=== PATIENT | male | born 1975 | race American Indian/Alaskan Native ===

== ENCOUNTER 2020-12-25 05:50 | Inpatient (IN) | payer SELFPAY ==
[2020-12-25] MEDS ORDERED: ASPIRIN 325 MG TAB PO ONE (05:55)
[2020-12-25] MEDS ORDERED: TRANEXAMIC ACID 500 MG in SODIUM CHLORIDE 0.9% 100 ML IV STA (06:18)
[2020-12-25 06:41] LABS: Basophils # (Auto) 0.1 K/mm3 (0.0-0.1); Eosinophils # (Auto) 0.1 K/mm3 (0.0-0.4); Eosinophils % (Auto) 1.2 % (0.0-4.3); Hematocrit 48.6 % (35.5-45.6); Hemoglobin 16.3 gm/dl (11.8-15.2); Lymphocytes # (Auto) 3.5 K/mm3 (1.2-5.4); Mean Corpuscular HGB Conc 34 % (32-34); Mean Corpuscular Volume 89 fl (84-94); Monocytes # (Auto) 0.6 K/mm3 (0.0-0.8); Monocytes % (Auto) 7.9 % (0.0-7.3); Platelet Count 187 K/mm3 (140-440); Red Blood Count 5.49 M/mm3 (3.65-5.03)
--- NOTE | 2020-12-25 06:42 | Emergency Department Report ---
ED Chest Pain HPI - General Chief Complaint: Chest Pain Stated Complaint: CHEST PAIN/NOSE BLEED Time Seen by Provider: 12/25/20 06:01 Source: patient Mode of arrival: Ambulatory Limitations: No Limitations - History of Present Illness Initial Comments: Chief complaint: Nosebleed, chest pain HPI: This is a 45-year-old gentleman with history of severe hypertension on five antihypertensive medications, [place] who presents with nosebleed and chest pain. Patient awakened 1 hour prior to arrival with bleeding from the right nostril. He also had concomitant right sharp chest pain. Pain does not change with movement or cough. Patient recently traveled from [place]. He is followed by [facility] in [place]. He denies fever cough. He denies leg pain. He has had bilateral leg swelling. He flew to [place] by [employer]. He takes five medications for hypertension including hydralazine and atenolol. He cannot recall the other medications. He did not take any medication on yesterday. His last dose of medication was Saturday. He has several family members with cardiac disease. This is his third episode of epistaxis. He denies tobacco alcohol or recreational drug use. MD Complaint: chest pain -: Sudden, hour(s) (1 hour prior to arrival in the middle of sleep) Onset: during rest Pain Location: right chest Severity: moderate Quality: sharp Consistency: constant Improves With: nothing Worsens With: nothing Treatments Prior to Arrival: none - Related Data Allergies Allergy/AdvReac Type Severity Reaction Status Date / Time No Known Allergies Allergy Verified 12/25/20 06:04 Heart Score - HEART Score History: Slightly suspicious EKG: Non-specific Age: < 45 Risk factors: > 3 risk factors or hx of atherosclerotic disease Troponin: < normal limit HEART Score: 3 - EKG Read Time Time EKG Completed: 06:04 EKG Read Time: 06:04 ED Review of Systems ROS: Stated complaint: CHEST PAIN/NOSE BLEED Other details as noted in HPI Comment: All other systems reviewed and negative Constitutional: denies: fever, malaise ENT: epistaxis Respiratory: denies: cough, shortness of breath Cardiovascular: chest pain Gastrointestinal: denies: abdominal pain, nausea, vomiting Genitourinary: denies: urgency, dysuria Skin: denies: rash, lesions Neurological: denies: headache ED Past Medical Hx - Past Medical History Previous Medical History?: Yes Hx Hypertension: Yes Hx Heart Attack/AMI: Yes - Surgical History Past Surgical History?: No - Family History Family history: CAD/TN - Social History Smoking Status: Never Smoker Substance Use Type: None ED Physical Exam - General Limitations: No Limitations General appearance: alert, anxious, other (Spitting up blood, laying back at 45 degrees) - Head Head exam: Present: atraumatic, normocephalic - Eye Eye exam: Present: normal appearance - ENT ENT exam: Present: mucous membranes moist, other (Gauze in the right nose clean dry) - Neck Neck exam: Present: normal inspection, full ROM - Respiratory Respiratory exam: Present: normal lung sounds bilaterally. Absent: respiratory distress, wheezes, rales, rhonchi - Cardiovascular Cardiovascular Exam: Present: regular rate, normal rhythm, normal heart sounds. Absent: systolic murmur, diastolic murmur, rubs, gallop - GI/Abdominal GI/Abdominal exam: Present: soft, normal bowel sounds. Absent: distended, t enderness, guarding, rebound - Rectal Rectal exam: Present: deferred - Extremities Exam Extremities exam: Present: pedal edema, other (Hyperpigmented patches lower extremities) - Neurological Exam Neurological exam: Present: alert, oriented X3 - Psychiatric Psychiatric exam: Present: normal affect, normal mood - Skin Skin exam: Present: warm, dry, intact, normal color. Absent: rash ED Course Vital Signs 12/25/20 12/25/20 12/25/20 05:56 06:30 08:25 Temperature 98.6 F Pulse Rate 102 H 93 H 81 Respiratory 19 Rate Blood Pressure 236/149 214/124 Blood Pressure 270/157 [Right] O2 Sat by Pulse 97 Oximetry - Procedure Description Procedures done: Epistaxis management. I personally sprayed approximately 20 sprays of Afrin over the course of 10 minutes in order to control epistaxis. I inserted a 4.5 cm anterior Rhino Rocket ED Medical Decision Making - Lab Data Result diagrams: 12/25/20 06:27 12/25/20 06:27 Laboratory Results - last 24 hr 12/25/20 12/25/20 12/25/20 06:27 06:27 06:27 WBC 7.8 RBC 5.49 H Hgb 16.3 H Hct 48.6 H MCV 89 MCH 30 MCHC 34 RDW 15.0 Plt Count 187 Lymph % (Auto) 45.0 H Burke % (Auto) 7.9 H Eos % (Auto) 1.2 Baso % (Auto) 1.0 Lymph # (Auto) 3.5 Burke # (Auto) 0.6 Eos # (Auto) 0.1 Baso # (Auto) 0.1 Seg Neutrophils % 44.9 Seg Neutrophils # 3.5 PT 12.7 INR 0.90 APTT 34.4 D-Dimer 480.46 H Sodium 140 Potassium 3.4 L Chloride 99.2 Carbon Dioxide 28 Anion Gap 16 BUN 26 H Creatinine 2.1 H Estimated GFR 34 BUN/Creatinine Ratio 12 Glucose 111 H Calcium 8.9 Total Bilirubin 0.70 AST 25 ALT 40 Alkaline Phosphatase 65 Troponin T 0.176 H* Total Protein 8.2 Albumin 4.4 Albumin/Globulin Ratio 1.2 - EKG Data EKG shows normal: sinus rhythm Rate: tachycardia - EKG Data Interpretation: nonspecific ST-T wave estiven, LVH 12/25/20 06:41 EKG obtained 604 EKG interpreted by tn Sinus tachycardia rate 100 bpm left axis deviation prolonged QTC positive LVH prolonged RI large P waves repolarization abnormality due to LVH - Radiology Data Radiology results: report reviewed [facility] [address] [place] [address] Cat Scan Report Signed Patient: TOVA PANDEY MR#: [id number] [birth year] : 1975 Acct:[id number] Age/Sex: 45 / M ADM Date: 12/25/20 Loc: ED Attending Dr: Ordering Physician: Petra Acevedo MD Date of Service: 12/25/20 Procedure(s): CT angio chest Accession Number(s): [id number] cc: Petra Acevedo MD CTA CHEST WITH IV CONTRAST INDICATION: Shortness of breath and elevated d-dimer. TECHNIQUE: Axial CT images were obtained through the chest after injection of 60 cc Omnipaque 350 IV contrast. 3 plane MIP reconstructions were produced. All CT scans at this location are performed using CT dose reduction for ALARA by means of automated exposure control. COMPARISON: None available. FINDINGS: Pulmonary Arteries: No pulmonary emboli. Lungs: There is mild interstitial pulmonary edema. Trachea and Bronchi: No significant abnormality. Heart and Pericardium: No significant abnormality. Vasculature: No significant abnormality. Lymphatics: No lymphadenopathy. Additional Findings: None. Upper Abdomen: No acute findings. Skeletal Structures: No acute findings or aggressive bone lesions. IMPRESSION: 1. No CT evidence for pulmonary embolism. 2. Mild pulmonary edema. Signer Name: Rafa Villatoro MD Signed: 12/25/2020 8:12 AM Workstation Name: [id number] Transcribed By: LEONOR Dictated By: Rafa Villatoro MD Electronically Authenticated By: Rafa Villatoro MD Signed Date/Time: 12/25/20811 DD/ 0 TD/TT: [facility] [address] [place] [address] XRay Report Signed Patient: TOVA PANDEY MR#: [id number] [birth year] : 1975 Acct:[id number] Age/Sex: 45 / M ADM Date: 12/25/20 Loc: ED Attending Dr: Ordering Physician: Petra Acevedo MD Date of Service: 12/25/20 Procedure(s): XR chest 1V ap Accession Number(s): [id number] cc: Petra Acevedo MD Fluoro Time In Minutes: CHEST 1 VIEW 12/25/2020 6:39 AM INDICATION / CLINICAL INFORMATION: chest pain. COMPARISON: None available. FINDINGS: SUPPORT DEVICES: None. HEART / MEDIASTINUM: No significant abnormality. LUNGS / PLEURA: No significant pulmonary or pleural abnormality. No pneumothorax. ADDITIONAL FINDINGS: No significant additional findings. IMPRESSION: 1. No acute findings. Signer Name: Camron Segundo MD Signed: 12/25/2020 7:45 AM Workstation Name: [id number] Transcribed By: EMMY Dictated By: Camron Segundo MD Electronically Authenticated By: Camron Segundo MD Signed Date/Time: 12/25/20744 DD/ 4 TD/TT: - Medical Decision Making 1. Anterior epistaxis: Patient required several interventions to control bleeding including Afrin and anterior nasal packing. Keflex ordered for antibiotic staphylococcal prophylaxis. 2. Hypertensive emergency: Patient initial blood pressure 270/157. Patient admitted to not taking his blood pressure medication since Saturday 2 days ago. Endorgan damage includes demand ischemia with elevated troponin. Unclear if kidney injury is new for patient. Patient received multiple doses of IV labetalol. 3. Type II NSTEMI caused by hypertensive crisis myocardial supply demand mismatch: Patient has history of "several small heart attacks" without PCI. I suspect patient has nonobstructive coronary disease. Aspirin given after epistaxis controlled. 4. Acute on chronic kidney injury: Proteinuria evident, suspect developing nephropathy due to hypertension, overall hematuria acute endorgan damage due to hypertensive crisis not as likely 5. Acute heart failure: Pulmonary edema seen on CT angiogram of the chest which ruled out pulmonary embolism and aortic dissection. Suspect diastolic heart failure with severe uncontrolled hypertension. Patient's Blood cell Storage insurance has not been active since March 2020. I suspect medication noncompliance has been longer than 2 days without access to health care. Critical Care Time: Yes Critical care time in (mins) excluding proc time.: 40 Critical care attestation.: If time is entered above; I have spent that time in minutes in the direct care of this critically ill patient, excluding procedure time. 40 minutes of critical care time excluding procedures were used in the care of the patient. I came immediately to the bedside upon patient's arrival to treatment room. I was concerned for posterior epistaxis. I was concerned for hypertensive emergency such as aortic dissection. I was concerned for possible pulmonary embolism. I discussed treatment plan with the nursing team members. I reviewed electronic record. Patient required multiple interventions and reassessments. ED Disposition Clinical Impression: Hypertensive emergency, NSTEMI (non-ST elevated myocardial infarction), [id number] kidney injury, Anterior epistaxis, Acute diastolic heart failure Disposition: OP ADMIT IP TO THIS HOSP Is pt being admited?: Yes Does the pt Need Aspirin: No Condition: Stable Instructions: Hypertension (ED)
[2020-12-25] MEDS ORDERED: OXYMETAZOLINE 0.05% NASAL SPRAY NS ONE (06:46)
[2020-12-25 06:51] LABS: INR 0.9 (0.87-1.13)
[2020-12-25 06:52] LABS: Partial Thromboplastin Time 34.4 Sec. (24.2-36.6)
[2020-12-25 07:07] LABS: Albumin 4.4 g/dL (3.9-5); Calcium 8.9 mg/dL (8.4-10.2)
[2020-12-25] MEDS ORDERED: ASPIRIN 81 MG TAB CHEW PO ONE (07:44)
--- NOTE | 2020-12-25 07:50 | XRay Report ---
CHEST 1 VIEW 12/25/2020 6:39 AM INDICATION / CLINICAL INFORMATION: chest pain. COMPARISON: None available. FINDINGS: SUPPORT DEVICES: None. HEART / MEDIASTINUM: No significant abnormality. LUNGS / PLEURA: No significant pulmonary or pleural abnormality. No pneumothorax. ADDITIONAL FINDINGS: No significant additional findings. IMPRESSION: 1. No acute findings. Signer Name: Camron Segundo MD Signed: 12/25/2020 7:45 AM Workstation Name: [id number]
[2020-12-25 07:56] LABS: Chol/HDL Ratio 4.95 %
--- NOTE | 2020-12-25 08:16 | Cat Scan Report ---
CTA CHEST WITH IV CONTRAST INDICATION: Shortness of breath and elevated d-dimer. TECHNIQUE: Axial CT images were obtained through the chest after injection of 60 cc Omnipaque 350 IV contrast. 3 plane MIP reconstructions were produced. All CT scans at this location are performed using CT dose r eduction for ALARA by means of automated exposure control. COMPARISON: None available. FINDINGS: Pulmonary Arteries: No pulmonary emboli. Lungs: There is mild interstitial pulmonary edema. Trachea and Bronchi: No significant abnormality. Heart and Pericardium: No significant abnormality. Vasculature: No significant abnormality. Lymphatics: No lymphadenopathy. Additional Findings: None. Upper Abdomen: No acute findings. Skeletal Structures: No acute findings or aggressive bone lesions. IMPRESSION: 1. No CT evidence for pulmonary embolism. 2. Mild pulmonary edema. Signer Name: Rafa Villatoro MD Signed: 12/25/2020 8:12 AM Workstation Name: [id number]
[2020-12-25 08:32] LABS: Bilirubin,Urine NEG (Negative); Blood,Urine NEG (Negative); Color,Urine Straw (Yellow); Mucus,Urine FEW /HPF; Urobilinogen,Urine < 2.0 mg/dL (<2.0); WBC,Urine < 1.0 /HPF (0.0-6.0)
[2020-12-25 08:42] LABS: Protein,Urine >500 mg/dL (Negative)
[2020-12-25] MEDS ORDERED: niCARdipine DRIP 40 MG/200 ML BAG IV ONE (09:14)
[2020-12-25] MEDS ORDERED: ACETAMINOPHEN 500 MG TAB PO ONE (09:17)
[2020-12-25] MEDS ORDERED: cephALEXin 500 MG CAP PO ONE (09:17)
--- NOTE | 2020-12-25 10:18 | History and Physical Report ---
History of Present Illness Date of examination: 12/25/20 Date of admission: 12/25/20 Chief complaint: Chest pain Epistaxis History of present illness: Patient is 45 yo with history of hypertension, chronic kidney disase, obesity. He presents with chest pain and epistaxis after missing anti-hypertensives for several days. He lives in [place], follows with [facility] and is just visiting [facility]. Chest pain is 8/10, sharp pain, no radiation, not associated with diaphoresis. He also complains of bleeding from nose. He states this has happened 4 times when his BP was very high. Patient states he is on 5 medications for hypertension but can only remember Hydralazine and Atenolol. Also he has not taken his medications in days. In ED, his initial BP was 236/149. He was given Labetalol iv X 2doses, but SBP still greater than 200 so Cardene drip has been ordered. His chest pain has now subsided. Also Troponin elevated 0.176 and Creatinine 2.1. I consulted and discussed with cardiology and Nephrology. Will admit to ICU after Cardene drip started. Past History Past Medical History: hypertension, renal failure Past Surgical History: No surgical history Social history: full code. denies: smoking, alcohol abuse, IV drug use Family history: CAD, hypertension Medications and Allergies Allergies Allergy/AdvReac Type Severity Reaction Status Date / Time No Known Allergies Allergy Verified 12/25/20 06:04 Active Meds: Active Medications Nicardipine/Sodium Chloride (Cardene Drip 40 Mg/200 Ml) 40 mg in 200 mls @ 25 mls/hr IV ONCE ONE; Protocol Stop: 12/25/20 17:13 Review of Systems Constitutional: no fever, no chills Ears, nose, mouth and throat: epistaxis Cardiovascular: chest pain, high blood pressure, no lightheadedness Respiratory: no cough Gastrointestinal: no abdominal pain Genitourinary Male: no dysuria, no hematuria Musculoskeletal: no neck pain, no frequent falls Integumentary: no rash, no boils Neurological: no weakness, no seizures Psychiatric: no anxiety, no confusion Exam - Physical Exam Narrative exam: Gen: Not in acute distress, obese, lying in bed HEENT: Normocephalic, atraumatic, nose pack Lungs: Clear to auscultation bilaterally, no wheeze, no rales Heart:S1 and S2 reg, no murmurs, rubs or gallop Abd: soft, non tender, non distended, normal bowel sounds, Ext: bilateral lower ext edema, no clubbing, no cycanosis Neuro: AAO x 3, moves all extremities, no focal neuro signs - Constitutional Vitals: Temp Pulse Resp BP Pulse Ox 98.6 F 81 19 214/124 97 12/25/20 05:56 12/25/20 08:25 12/25/20 05:56 12/25/20 08:25 12/25/20 05:56 HEART Score - HEART Score EKG: Non-specific Age: < 45 Risk factors: > 3 risk factors or hx of atherosclerotic disease Troponin: Troponin T 0.199 ng/mL (0.00-0.029) H* 12/25/20 09:22 Troponin: < normal limit Results - Labs CBC & Chem 7: 12/25/20 06:27 12/25/20 06:27 Labs: Abnormal lab results 12/25/20 12/25/20 12/25/20 Range/Units 06:27 06:27 06:27 RBC 5.49 H (3.65-5.03) M/mm3 Hgb 16.3 H (11.8-15.2) gm/dl Hct 48.6 H (35.5-45.6) % Lymph % (Auto) 45.0 H (13.4-35.0) % Marshall % (Auto) 7.9 H (0.0-7.3) % D-Dimer 480.46 H (0-234) ng/mlDDU Potassium 3.4 L (3.6-5.0) mmol/L BUN 26 H (9-20) mg/dL Creatinine 2.1 H (0.8-1.3) mg/dL Glucose 111 H (75-100) mg/dL Troponin T 0.176 H* (0.00-0.029) ng/mL Triglycerides 217 H (2-149) mg/dL Cholesterol 228 H (50-199) mg/dL LDL Cholesterol Direct 160 H (50-130) mg/dL Urine pH (5.0-7.0) 12/25/20 12/25/20 Range/Units 06:30 09:22 RBC (3.65-5.03) M/mm3 Hgb (11.8-15.2) gm/dl Hct (35.5-45.6) % Lymph % (Auto) (13.4-35.0) % Marshall % (Auto) (0.0-7.3) % D-Dimer (0-234) ng/mlDDU Potassium (3.6-5.0) mmol/L BUN (9-20) mg/dL Creatinine (0.8-1.3) mg/dL Glucose (75-100) mg/dL Troponin T 0.199 H* (0.00-0.029) ng/mL Triglycerides (2-149) mg/dL Cholesterol (50-199) mg/dL LDL Cholesterol Direct (50-130) mg/dL Urine pH 8.0 H (5.0-7.0) Assessment and Plan Hypertensive emergency BP 236/149 on presentation Admit to ICU To start Cardene drip He states he was on 5 anti-hypertensives at home but only remembers Atenolol and Hydralazine but cannot remeber dosages Add Hydralazine and Atenolol po Chest pain Troponin elevated. cardiology consulted. I discussed with Cardiology Aspirin given in ED Continuie Aspirin 325 mg daily Repeat Troponin Epistaxis Likely due to hypertensive Emergency H/H stable. Epistaxis subsided. No active epistaxis right now NSTEMI likely Type 2 Elevated Troponin cardiology following Acute on CKD Cr 2.1 He does not know baseline but states was told kidney test abnormal due to Hypertension Consult nephrology Hyperlipidemia Add Lipitor Hypokalemia Potassium ordered Full code status
[2020-12-25] MEDS ORDERED: MORPHINE 2 MG/1 ML INJ IV PRN (10:20)
[2020-12-25] MEDS ORDERED: ALBUTEROL 2.5 MG/3 ML NEBU IH PRN (10:20)
[2020-12-25] MEDS ORDERED: NITROGLYCERIN 0.4 MG TAB SUBL SL PRN (10:24)
[2020-12-25] MEDS ORDERED: ACETAMINOPHEN 325 MG TAB PO PRN (10:24)
--- NOTE | 2020-12-25 10:29 | Consultation ---
History of Present Illness Consult date: 12/25/20 Requesting physician: YELENA ARMSTRONG Consult reason: chest pain, elevated troponin History of present illness: Pt is a 45-year-old male, previously unknown to our practice, who presented with complaints of epistaxis that woke him up from sleep this AM. Plug noted in R nostril upon assessment. Pt also reports intermittent episodes of stabbing pain localized to small spots on his upper right anterior chest wall and upper left anterior chest wall. Episodes lasted a few seconds each and only occurred during the nosebleed. Chest pain has now resolved. No additional cardiac complaints. Pt reports a hx of HTN and states he has not taken his home meds for 5-6 days. He is currently in [place] visiting a friend but typically receives care in [place]. He does not have a list of his home meds. Pt reports having a pharmacologic stress test done approximately 2 years ago, which he states was normal. He also reports undergoing subsequent testing (?bx) of his adrenal glands, after which he was told his adrenal glands were causing HTN. Past History Past Medical History: hypertension Past Surgical History: denies: CABG, PTCA Social history: denies: smoking, alcohol abuse Family history: hypertension Medications and Allergies Allergies Allergy/AdvReac Type Severity Reaction Status Date / Time No Known Allergies Allergy Verified 12/25/20 06:04 Active Meds: Active Medications Atenolol (Atenolol 50 Mg Tab) 50 mg PO QDAY AZUL Hydralazine HCl (Hydralazine 100 Mg Tab) 100 mg PO TID AZUL Nicardipine/Sodium Chloride (Cardene Drip 40 Mg/200 Ml) 40 mg in 200 mls @ 25 mls/hr IV ONCE ONE; Protocol Stop: 12/25/20 17:13 Last Admin: 12/25/20 10:06 Dose: 5 mg/hr, 25 mls/hr Documented by: Review of Systems Constitutional: no fever, no chills, no sweats Ears, nose, mouth and throat: epistaxis, no nasal congestion, no sore throat Cardiovascular: chest pain, no orthopnea, no palpitations, no edema, no syncope, no lightheadedness, no shortness of breath, no dyspnea on exertion, no paroxysmal nocturnal dyspnea Respiratory: no cough, no shortness of breath, no dyspnea on exertion Gastrointestinal: no abdominal pain, no nausea, no vomiting Genitourinary Male: no dysuria, no flank pain Musculoskeletal: no neck stiffness, no neck pain Integumentary: no rash, no wounds Neurological: no head injury, no paralysis, no weakness, no numbness, no tingling, no seizures, no syncope, no vertigo, no headaches Endocrine: no cold intolerance, no heat intolerance Hematologic/Lymphatic: no easy bruising, no easy bleeding Allergic/Immunologic: no anaphylaxis Physical Examination Last Vital Signs Temp 98.6 F 12/25/20 05:56 Pulse 86 12/25/20 10:29 Resp 22 12/25/20 10:29 BP 146/70 12/25/20 10:29 Pulse Ox 96 12/25/20 10:29 General appearance: no acute distress HEENT: Positive: EOMI, Normocephaly Neck: Positive: neck supple, trachea midline. Negative: JVD/HJR Cardiac: Positive: Reg Rate and Rhythm, S1/S2. Negative: Audible Murmur Lungs: Positive: clear to auscultation Neuro: Positive: Grossly Intact Abdomen: Positive: Soft. Negative: Tender Skin: Negative: Rash Musculoskeletal: No Pain Extremities: Present: lower extr. pulses, +1 Edema (BLE) Results 12/25/20 06:27 12/25/20 06:27 Cardiac Enzymes 12/25/20 Range/Units 06:27 AST 25 (5-40) units/L Coagulation 12/25/20 Range/Units 06:27 PT 12.7 (12.2-14.9) Sec. INR 0.90 (0.87-1.13) APTT 34.4 (24.2-36.6) Sec. Lipids 12/25/20 Range/Units 06:27 Triglycerides 217 H (2-149) mg/dL Cholesterol 228 H (50-199) mg/dL HDL Cholesterol 46 (40-59) mg/dL Cholesterol/HDL Ratio 4.95 % CBC 12/25/20 Range/Units 06:27 WBC 7.8 (4.5-11.0) K/mm3 RBC 5.49 H (3.65-5.03) M/mm3 Hgb 16.3 H (11.8-15.2) gm/dl Hct 48.6 H (35.5-45.6) % Plt Count 187 (140-440) K/mm3 Lymph # (Auto) 3.5 (1.2-5.4) K/mm3 Lamb # (Auto) 0.6 (0.0-0.8) K/mm3 Eos # (Auto) 0.1 (0.0-0.4) K/mm3 Baso # (Auto) 0.1 (0.0-0.1) K/mm3 Comprehensive Metabolic Panel 12/25/20 Range/Units 06:27 Sodium 140 (137-145) mmol/L Potassium 3.4 L (3.6-5.0) mmol/L Chloride 99.2 (98-107) mmol/L Carbon Dioxide 28 (22-30) mmol/L BUN 26 H (9-20) mg/dL Creatinine 2.1 H (0.8-1.3) mg/dL Glucose 111 H (75-100) mg/dL Calcium 8.9 (8.4-10.2) mg/dL AST 25 (5-40) units/L ALT 40 (7-56) units/L Alkaline Phosphatase 65 (35-129) units/L Total Protein 8.2 (6.3-8.2) g/dL Albumin 4.4 (3.9-5) g/dL - Imaging and Cardiology Echo: pending EKG: report reviewed, image reviewed - EKG Interpretation EKG: no acute changes EKG interpretations - EKG Sinus rhythms and dysrhythmias: sinus rhythm Chamber hypertrophy or enlargement: left atrial enlargement, right atrial enlargment, left ventricular hypertro Repolarization changes or abnormalities: nonspecific abnormality, ST segment, and/or T wave Assessment and Plan Obtain echo. Suspect NSTEMI Type 2 in the setting of accelerated HTN & RENEE. Will optimize antihypertensive regimen. Wean Cardene gtt as tolerated. No indication for heparin gtt at this time. 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 He is also notably non-compliant with his home medications. Signed by: Marie Tony NP Pt seen in conjunction with Dr. Sampson, who agrees with the assessment and plan of care. - Patient Problems (1) Epistaxis Current Visit: Yes Status: Acute (2) Atypical chest pain Current Visit: Yes Status: Acute (3) NSTEMI (non-ST elevated myocardial infarction) Current Visit: Yes Status: Acute (4) Hypertensive emergency Current Visit: Yes Status: Acute (5) Adrenal tumor Current Visit: Yes Status: Suspected (6) RENEE (acute kidney injury) Current Visit: Yes Status: Acute (7) CKD (chronic kidney disease) Current Visit: Yes Status: Suspected (8) HLD (hyperlipidemia) Current Visit: Yes Status: Chronic Qualifiers: Hyperlipidemia type: mixed hyperlipidemia Qualified Code(s): E78.2 - Mixed hyperlipidemia (9) Medical non-compliance Current Visit: Yes Status: Chronic
[2020-12-25] MEDS ORDERED: POTASSIUM CHLORIDE ER 20 MEQ TAB PO ONE ×2 (10:52→12:00)
[2020-12-25] MEDS ORDERED: atenoloL 50 MG TAB PO SCH (11:00)
[2020-12-25] MEDS: carvediloL 6.25 MG TAB PO SCH ×2 (11:56→23:21)
[2020-12-25] MEDS: amLODIPine 5 MG TAB PO SCH (11:56)
--- NOTE | 2020-12-25 12:39 | Event Note ---
Date: 12/25/20 BP improved. Latest 139/68. I discussed with Nurse. Will d/c Bertha butt. Give oral anti-hypertensives. Transfer to Telemetry.
[2020-12-25] MEDS ORDERED: hydrALAZINE 100 MG TAB PO SCH (14:00)
--- NOTE | 2020-12-25 15:27 | Consultation ---
History of Present Illness - Reason for Consult Consult date: 12/25/20 acute renal failure, chronic renal failure, accelerated hypertension Requesting physician: YELENA ARMSTRONG - History of Present Illness 45-year-old male who is not known to me visiting from [place] with a history of hypertension presents on account of chest pain and nosebleeds. Patient has a history of hypertension for at least 13 years and it has been difficult to control. From his description, he had adrenal vein sampling and was told he was making too much of a hormone from one of his adrenal glands. He is on spironolactone 25 mg twice daily. He has had nosebleeds for times in the past usually in the setting of uncontrolled hypertension. Presents now on account of nosebleed which awakened him. He also complains of sharp pain in his substernal right chest 8/10 no associated nausea or vomiting dizziness or diaphoresis. No fever or chills. No presenting in the emergency room, blood pressure was 236/149 mmHg. He has missed his medications for at least 5 days. Patient was given IV labetalol in the ER and then placed on Cardene drip. It is being weaned off now since blood pressure has improved. CT scan of the chest with contrast showed mild pulmonary edema but there was no pulmonary embolism. BUN/creatinine elevated at 26/2.1 mg/dL and potassium low at 3.4 mmol/L. Urinalysis also showed >500 milligrams per deciliter of protein and 50 mg/dL glucose Past History Past Medical History: CAD, hypertension, renal failure, other (Disorder of adrenal gland) Past Surgical History: No surgical history, Other (Surgery left arm following a fracture, adrenal vein sampling) Social history: lives with family (With Aunt. Has lived in [place] for 18 years. 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 denies: smoking, alcohol abuse, IV drug use Family history: CAD, hypertension Medications and Allergies Allergies Allergy/AdvReac Type Severity Reaction Status Date / Time No Known Allergies Allergy Verified 12/25/20 06:04 Active Meds: Active Medications Acetaminophen (Acetaminophen 325 Mg Tab) 650 mg PO Q6H PRN PRN Reason: Pain, Mild (1-3) Albuterol (Albuterol 2.5 Mg/3 Ml Nebu) 2.5 mg IH Q3HRT PRN PRN Reason: Shortness Of Breath Amlodipine Besylate (Amlodipine 5 Mg Tab) 10 mg PO DAILY [facility] Last Admin: 12/25/20 11:56 Dose: 10 mg Documented by: Aspirin (Aspirin Ec 325 Mg Tab) 325 mg PO QDAY [facility] Atorvastatin Calcium (Atorvastatin 20 Mg Tab) 20 mg PO QHS [facility] Carvedilol (Carvedilol 6.25 Mg Tab) 25 mg PO BID [facility] Last Admin: 12/25/20 11:56 Dose: 25 mg Documented by: Hydralazine HCl (Hydralazine 25 Mg Tab) 50 mg PO Q8HR [facility] Nicardipine/Sodium Chloride (Cardene Drip 40 Mg/200 Ml) 40 mg in 200 mls @ 25 mls/hr IV ONCE ONE; Protocol Stop: 12/25/20 17:13 Last Titration: 12/25/20 11:55 Dose: 0 mg/hr, 0 mls/hr Documented by: Morphine Sulfate (Morphine 2 Mg/1 Ml Inj) 2 mg IV Q4H PRN PRN Reason: Pain, Moderate (4-6) Nitroglycerin (Nitroglycerin 0.4 Mg Tab Subl) 0.4 mg SL Q5M PRN PRN Reason: Chest Pain Sodium Chloride (Sodium Chloride 0.9% 10 Ml Flush Syringe) 10 ml IV BID AZUL Sodium Chloride (Sodium Chloride 0.9% 10 Ml Flush Syringe) 10 ml IV PRN PRN PRN Reason: LINE FLUSH Sodium Chloride (Sodium Chloride 0.9% 10 Ml Flush Syringe) 10 ml IV PRN PRN PRN Reason: LINE FLUSH Review of Systems ROS unobtainable: due to mental status Cardiovascular: lightheadedness (Occasional) Respiratory: cough (Unproductive) Gastrointestinal: constipation Exam - Vital Signs Vital signs: Vital Signs Temp Pulse Resp BP Pulse Ox 98.6 F 102 H 19 270/157 97 12/25/20 05:56 12/25/20 05:56 12/25/20 05:56 12/25/20 05:56 12/25/20 05:56 - Physical Exam Narrative exam: Heavily built middle-aged -French male lying in bed in no acute distress HEENT: NCAT, pink oral mucous membrane Neck: Supple, no venous distention CVS: S1S2 RRR with no murmur, rub or gallop Chest: Clear to auscultation Abdomen: Protuberant, soft, nontender, no organomegaly, bowel sounds are present Extremities: No edema Genitourinary deferred Skin warm and dry with no rash. Neuro: Awake, alert no focal deficits Results - Lab Results 12/25/20 06:27 12/25/20 06:27 Most recent lab results Calcium 8.9 mg/dL (8.4-10.2) 12/25/20 06:27 Magnesium 2.20 mg/dL (1.7-2.3) 12/25/20 10:51 Assessment and Plan - Patient Problems (1) Hypertensive emergency Current Visit: Yes Status: Acute Plan to address problem: Blood pressure has improved and patient has been started on oral medications. Will restart spironolactone and will get reports of last office visit/labs from (2) [id number] kidney injury Current Visit: Yes Status: Acute Plan to address problem: I suspect baseline chronic kidney disease stage III which may be secondary to hypertensive nephrosclerosis but given the proteinuria, concerned about chronic glomerulonephritis.Will request records from [facility] in am (3) Anterior epistaxis Current Visit: Yes Status: Acute Plan to address problem: Bleeding has subsided. Monitor overnight (4) Medical non-compliance Current Visit: Yes Status: Chronic Plan to address problem: Counseled patient on importance of taking medications regularly, keeping to diet and exercising regularly. (5) CKD (chronic kidney disease) Current Visit: Yes Status: Suspected Plan to address problem: Chronic kidney disease presumably secondary to hypertensive nephrosclerosis. The proteinuria is quite concerning for chronic glomerulonephritis
[2020-12-25] MEDS: hydrALAZINE 25 MG TAB PO SCH ×2 (15:59→23:21)
[2020-12-25] MEDS: SPIRONOLACTONE 25 MG TAB PO SCH ×2 (16:00→23:28)
[2020-12-26 04:26] LABS: Mean Corpuscular HGB Conc 33 % (32-34); Mean Corpuscular Volume 88 fl (84-94); Platelet Count 191 K/mm3 (140-440); Red Blood Count 5.44 M/mm3 (3.65-5.03); Red Cell Distribution Width 14.4 % (13.2-15.2)
[2020-12-26 04:37] LABS: Calcium 8.6 mg/dL (8.4-10.2)
[2020-12-26] MEDS ORDERED: hydrALAZINE 20 MG/1 ML INJ IV PRN (05:01)
[2020-12-26] MEDS: hydrALAZINE 25 MG TAB PO SCH ×2 (05:50→14:00)
[2020-12-26] MEDS ORDERED: ONDANSETRON 4 MG/2 ML INJ IV PRN ×2 (07:58→08:30)
[2020-12-26] MEDS ORDERED: HYDROcodone/ACETAMINOPHEN 5-325 MG TAB PO PRN (08:00)
[2020-12-26] MEDS ORDERED: ACETAMINOPHEN 325 MG TAB PO PRN ×2 (08:00→11:41)
[2020-12-26] MEDS ORDERED: MORPHINE 4 MG/1 ML INJ IV PRN ×2 (08:00→11:41)
--- NOTE | 2020-12-26 09:40 | Vascular Lab Report ---
DUPLEX DOPPLER LOWER EXTREMITY VEINS, BILATERAL INDICATION / CLINICAL INFORMATION: bilateral leg swelling. TECHNIQUE: Duplex doppler imaging was performed through the veins of both lower extremities using lora ous compression and other maneuvers. COMPARISON: None available. FINDINGS: RIGHT COMMON FEMORAL VEIN: Negative. RIGHT FEMORAL VEIN: Negative. RIGHT POPLITEAL VEIN: Negative. RIGHT CALF VEINS: Negative. LEFT COMMON FEMORAL VEIN: Negative. LEFT FEMORAL VEIN: Negative. LEFT POPLITEAL VEIN: Negative. LEFT CALF VEINS: Negative. ADDITIONAL FINDINGS: None. IMPRESSION: 1. No sonographic evidence for DVT in either lower extremity. Signer Name: Carson Duffy MD Signed: 12/26/2020 9:35 AM Workstation Name: [email or web address]
--- NOTE | 2020-12-26 10:14 | Progress Note ---
Assessment and Plan - Patient Problems (1) Hypertensive emergency Current Visit: Yes Status: Acute Plan to address problem: Blood pressure has improved and patient has been started on oral medications. Continue spironolactone. We will add clonidine. Awaiting records so we can restart his usual home blood pressure medications. (2) [id number] kidney injury Current Visit: Yes Status: Acute Plan to address problem: I suspect baseline chronic kidney disease stage III which may be secondary to hypertensive nephrosclerosis but given the proteinuria, concerned about chronic glomerulonephritis. Awaiting records from [facility] (3) Anterior epistaxis Current Visit: Yes Status: Acute Plan to address problem: Bleeding has subsided. Monitor overnight (4) Medical non-compliance Current Visit: Yes Status: Chronic Plan to address problem: Counseled patient on importance of taking medications regularly, keeping to diet and exercising regularly. (5) CKD (chronic kidney disease) Current Visit: Yes Status: Suspected Plan to address problem: Chronic kidney disease presumably secondary to hypertensive nephrosclerosis. The proteinuria is quite concerning for chronic glomerulonephritis Subjective Date of service: 12/26/20 Principal diagnosis: Acute kidney injury, hypertensive emergency Interval history: Patient seen lying in bed. Still complains of headache. No nausea vomiting. No shortness of breath. No nosebleeds Objective - Exam Narrative Exam: Heavily built middle-aged -Burmese male lying in bed in no acute distress HEENT: NCAT, Neck: Supple, no venous distention CVS: S1S2 RRR with no murmur, rub or gallop Chest: Clear to auscultation Abdomen: Protuberant, soft, nontender, no organomegaly, bowel sounds are present Extremities: No edema Genitourinary deferred Skin warm and dry with no rash. Neuro: Awake, alert no focal deficits - Vital Signs Vital signs: Vital Signs - 12hr 12/25/20 12/25/20 12/25/20 22:16 22:30 22:46 Pulse Rate 77 71 66 Respiratory 21 17 16 Rate Blood Pressure 146/92 141/80 141/80 O2 Sat by Pulse 97 96 97 Oximetry 12/25/20 12/25/20 12/25/20 23:00 23:15 23:16 Pulse Rate 69 67 65 Respiratory 18 16 20 Rate Blood Pressure 158/100 210/123 219/129 O2 Sat by Pulse 97 97 96 Oximetry 12/25/20 12/25/2021 23:21 23:30 23:46 Pulse Rate 68 65 69 Respiratory 19 18 Rate Blood Pressure 219/129 212/133 212/133 O2 Sat by Pulse 97 97 Oximetry 12/26/20 12/26/20 12/26/20 00:00 00:16 00:30 Pulse Rate 70 68 71 Respiratory 15 16 19 Rate Blood Pressure 220/126 212/133 196/137 O2 Sat by Pulse 98 95 91 Oximetry 12/26/20 12/26/20 12/26/20 00:46 01:00 01:16 Pulse Rate 64 69 64 Respiratory 19 19 16 Rate Blood Pressure 196/137 187/134 187/134 O2 Sat by Pulse 99 95 99 Oximetry 12/26/20 12/26/20 12/26/20 01:30 02:00 02:30 Pulse Rate 62 68 66 Respiratory 23 13 16 Rate Blood Pressure 183/122 191/129 187/111 O2 Sat by Pulse 97 97 88 Oximetry 12/26/20 12/26/20 12/26/20 03:00 03:30 04:00 Pulse Rate 72 62 Respiratory 18 13 Rate Blood Pressure 190/118 180/123 176/125 O2 Sat by Pulse 95 100 99 Oximetry 12/26/20 12/26/20 12/26/20 04:30 05:00 05:30 Pulse Rate Respiratory Rate Blood Pressure 183/115 177/124 O2 Sat by Pulse 90 93 98 Oximetry 12/26/20 12/26/20 12/26/20 05:50 06:00 06:30 Pulse Rate 87 71 79 Respiratory 15 16 Rate Blood Pressure 187/117 O2 Sat by Pulse 96 99 Oximetry 12/26/20 12/26/20 12/26/20 07:00 07:30 08:00 Pulse Rate 66 71 73 Respiratory 14 18 Rate Blood Pressure 158/110 O2 Sat by Pulse 100 97 98 Oximetry - Lab 12/26/20 03:44 12/26/20 03:44 Most recent lab results Calcium 8.6 mg/dL (8.4-10.2) 12/26/20 03:44 Magnesium 2.20 mg/dL (1.7-2.3) 12/25/20 10:51 Medications & Allergies - Medications Allergies/Adverse Reactions: Allergies No Known Allergies Allergy (Verified 12/25/20 06:04) Active Medications: Generic Name Dose Route Start Last Admin Trade Name Freq PRN Reason Stop Dose Admin Acetaminophen 650 mg 12/26/20 08:00 Acetaminophen 325 Mg Tab PO Q4H PRN Pain MILD(1-3)/Fever >100.5/WAN Hydrocodone Bitart/Acetaminophen 2 each 12/26/20 08:00 12/26/20 08:20 Hydrocodone/Acetaminophen 5-325 Mg Tab PO 2 each Q6H PRN Administration Pain, Moderate (4-6) Albuterol 2.5 mg 12/25/20 10:20 Albuterol 2.5 Mg/3 Ml Nebu IH Q3HRT PRN Shortness Of Breath Amlodipine Besylate 10 mg 12/25/20 11:00 12/25/20 11:56 Amlodipine 5 Mg Tab PO 10 mg DAILY [facility] Administration Aspirin 325 mg 12/26/20 10:00 Aspirin Ec 325 Mg Tab PO QDAY [facility] Atorvastatin Calcium 20 mg 12/25/20 22:00 12/25/20 23:21 Atorvastatin 20 Mg Tab PO 20 mg QHS [facility] Administration Carvedilol 25 mg 12/25/20 11:00 12/25/20 23:21 Carvedilol 6.25 Mg Tab PO 25 mg BID [facility] Administration Hydralazine HCl 50 mg 12/25/20 14:00 12/26/20 05:50 Hydralazine 25 Mg Tab PO 50 mg Q8HR [facility] Administration Hydralazine HCl 10 mg 12/26/20 05:01 12/26/20 05:50 Hydralazine 20 Mg/1 Ml Inj IV 10 mg Q6HR PRN Administration Hypertension Morphine Sulfate 2 mg 12/25/20 10:20 Morphine 2 Mg/1 Ml Inj IV Q4H PRN Pain, Moderate (4-6) Morphine Sulfate 4 mg 12/26/20 08:00 Morphine 4 Mg/1 Ml Inj IV Q4H PRN Pain , Severe (7-10) Nitroglycerin 0.4 mg 12/25/20 10:24 Nitroglycerin 0.4 Mg Tab Subl SL Q5M PRN Chest Pain Ondansetron HCl 4 mg 12/26/20 08:30 Ondansetron 4 Mg/2 Ml Inj IV Q8H PRN Nausea And Vomiting Sodium Chloride 10 ml 12/25/20 10:24 Sodium Chloride 0.9% 10 Ml Flush Syringe IV PRN PRN LINE FLUSH Sodium Chloride 10 ml 12/26/20 10:00 Sodium Chloride 0.9% 10 Ml Flush Syringe IV BID [facility] Spironolactone 25 mg 12/25/20 16:00 12/25/20 23:28 Spironolactone 25 Mg Tab PO 25 mg BID [facility] Administration
[2020-12-26] MEDS ORDERED: MORPHINE 2 MG/1 ML INJ IV PRN (11:41)
[2020-12-26] MEDS ORDERED: HYDROmorphone 1 MG/1 ML INJ IV PRN (11:41)
[2020-12-26] MEDS: carvediloL 6.25 MG TAB PO SCH ×2 (12:46→23:10)
[2020-12-26] MEDS: cloNIDine 0.1 MG TAB PO SCH ×2 (12:47→23:11)
[2020-12-26] MEDS: ASPIRIN EC 325 MG TAB PO SCH (12:47)
[2020-12-26] MEDS: amLODIPine 5 MG TAB PO SCH (12:53)
--- NOTE | 2020-12-26 12:53 | Progress Note ---
Assessment and Plan Assessment and plan: Hypertensive emergency BP 236/149 on presentation was started on cardene drip, BP improved, then switched to oral medications BP improved but not yet controlled Now on Hydralazine,Clonidine,Coreg and Amlodipine He states he was on 5 anti-hypertensives at home but only remembers Atenolol and Hydralazine Chest pain Troponin elevated. cardiology consulted. I discussed with Cardiology, Dr. Gatica Aspirin 325 mg daily For stress test in am Epistaxis Likely due to hypertensive Emergency H/H stable. Epistaxis subsided. No active epistaxis right now patient has inflatable nasal device right nostril, was placed yesterday 12/[address] Walters, ED Physician and she states should remain for 72 hrs, till 12/28/20 NSTEMI likely Type 2 Elevated Troponin cardiology following For stress test in am Acute on CKD Cr 1.8 improving He does not know baseline but states was told kidney test abnormal due to Hypertension Dr. Patel following Hyperlipidemia Add Lipitor Hypokalemia Potassium ordered Bilateral leg swelling Doppler negative for DVT Full code status History Interval history: No more chest pain Bilateral leg swellin Hospitalist Physical - Physical exam Narrative exam: Gen: Not in acute distress, obese, lying in bed HEENT: Normocephalic, atraumatic, nose pack Lungs: Clear to auscultation bilaterally, no wheeze, no rales Heart:S1 and S2 reg, no murmurs, rubs or gallop Abd: soft, non tender, non distended, normal bowel sounds, Ext: bilateral lower ext edema, no clubbing, no cyanosis Neuro: AAO x 3, moves all extremities, no focal neuro signs - Constitutional Vitals: Temp Pulse Resp BP Pulse Ox 97.4 F L 65 18 176/120 97 12/26/20 12:02 12/26/20 12:02 12/26/20 12:02 12/26/20 12:02 12/26/20 12:02 General appearance: Present: no acute distress HEART Score - HEART Score EKG: Non-specific Age: < 45 Risk factors: > 3 risk factors or hx of atherosclerotic disease Troponin: Troponin T 0.158 ng/mL (0.00-0.029) H* D 12/25/20 15:03 Troponin: < normal limit Results - Labs CBC & Chem 7: 12/26/20 03:44 12/26/20 03:44 Labs: Laboratory Last Values WBC 8.9 K/mm3 (4.5-11.0) 12/26/20 03:44 RBC 5.44 M/mm3 (3.65-5.03) H 12/26/20 03:44 Hgb 16.0 gm/dl (11.8-15.2) H 12/26/20 03:44 Hct 48.0 % (35.5-45.6) H 12/26/20 03:44 MCV 88 fl (84-94) 12/26/20 03:44 MCH 29 pg (28-32) 12/26/20 03:44 MCHC 33 % (32-34) 12/26/20 03:44 RDW 14.4 % (13.2-15.2) 12/26/20 03:44 Plt Count 191 K/mm3 (140-440) 12/26/20 03:44 Lymph % (Auto) 45.0 % (13.4-35.0) H 12/25/20 06:27 [place] % (Auto) 7.9 % (0.0-7.3) H 12/25/20 06:27 Eos % (Auto) 1.2 % (0.0-4.3) 12/25/20 06:27 Baso % (Auto) 1.0 % (0.0-1.8) 12/25/20 06:27 Lymph # (Auto) 3.5 K/mm3 (1.2-5.4) 12/25/20 06:27 [place] # (Auto) 0.6 K/mm3 (0.0-0.8) 12/25/20 06:27 Eos # (Auto) 0.1 K/mm3 (0.0-0.4) 12/25/20 06:27 Baso # (Auto) 0.1 K/mm3 (0.0-0.1) 12/25/20 06:27 Seg Neutrophils % 44.9 % (40.0-70.0) 12/25/20 06:27 Seg Neutrophils # 3.5 K/mm3 (1.8-7.7) 12/25/20 06:27 PT 12.7 Sec. (12.2-14.9) 12/25/20 06:27 INR 0.90 (0.87-1.13) 12/25/20 06:27 APTT 34.4 Sec. (24.2-36.6) 12/25/20 06:27 D-Dimer 480.46 ng/mlDDU (0-234) H 12/25/20 06:27 Sodium 139 mmol/L (137-145) 12/26/20 03:44 Potassium 3.4 mmol/L (3.6-5.0) L 12/26/20 03:44 Chloride 100.7 mmol/L (98-107) 12/26/20 03:44 Carbon Dioxide 28 mmol/L (22-30) 12/26/20 03:44 Anion Gap 14 mmol/L 12/26/20 03:44 BUN 24 mg/dL (9-20) H 12/26/20 03:44 Creatinine 1.8 mg/dL (0.8-1.3) H 12/26/20 03:44 Estimated GFR 49 ml/min 12/26/20 03:44 BUN/Creatinine Ratio 13 % 12/26/20 03:44 Glucose 109 mg/dL (75-100) H 12/26/20 03:44 Calcium 8.6 mg/dL (8.4-10.2) 12/26/20 03:44 Magnesium 2.20 mg/dL (1.7-2.3) 12/25/20 10:51 Total Bilirubin 0.70 mg/dL (0.1-1.2) 12/25/20 06:27 AST 25 units/L (5-40) 12/25/20 06:27 ALT 40 units/L (7-56) 12/25/20 06:27 Alkaline Phosphatase 65 units/L (35-129) 12/25/20 06:27 Troponin T 0.158 ng/mL (0.00-0.029) H* D 12/25/20 15:03 NT-Pro-B Natriuret Pep 417.1 pg/mL (0-450) 12/25/20 09:22 Total Protein 8.2 g/dL (6.3-8.2) 12/25/20 06:27 Albumin 4.4 g/dL (3.9-5) 12/25/20 06:27 Albumin/Globulin Ratio 1.2 % 12/25/20 06:27 Triglycerides 217 mg/dL (2-149) H 12/25/20 06:27 Cholesterol 228 mg/dL (50-199) H 12/25/20 06:27 LDL Cholesterol Direct 160 mg/dL (50-130) H 12/25/20 06:27 HDL Cholesterol 46 mg/dL (40-59) 12/25/20 06:27 Cholesterol/HDL Ratio 4.95 % 12/25/20 06:27 Urine Color Straw (Yellow) 12/25/20 06:30 Urine Turbidity Clear (Clear) 12/25/20 06:30 Urine pH 8.0 (5.0-7.0) H 12/25/20 06:30 Ur Specific [place] 1.007 (1.003-1.030) 12/25/20 06:30 Urine Protein >500 mg/dL (Negative) 12/25/20 06:30 Urine Glucose (UA) 50 mg/dL (Negative) 12/25/20 06:30 Urine Ketones Neg mg/dL (Negative) 12/25/20 06:30 Urine Blood Neg (Negative) 12/25/20 06:30 Urine Nitrite Neg (Negative) 12/25/20 06:30 Urine Bilirubin Neg (Negative) 12/25/20 06:30 Urine Urobilinogen < 2.0 mg/dL (<2.0) 12/25/20 06:30 Ur Leukocyte Esterase Neg (Negative) 12/25/20 06:30 Urine WBC (Auto) < 1.0 /HPF (0.0-6.0) 12/25/20 06:30 Urine RBC (Auto) 3.0 /HPF (0.0-6.0) 12/25/20 06:30 Urine Mucus Few /HPF 12/25/20 06:30 Active Medications - Current Medications Current Medications: Generic Name Dose Route Start Last Admin Trade Name Freq PRN Reason Stop Dose Admin Acetaminophen 650 mg 12/26/20 11:41 Acetaminophen 325 Mg Tab PO Q4H PRN Pain MILD(1-3)/Fever >100.5/WAN Hydrocodone Bitart/Acetaminophen 2 each 12/26/20 08:00 12/26/20 08:20 Hydrocodone/Acetaminophen 5-325 Mg Tab PO 2 each Q6H PRN Administration Pain, Moderate (4-6) Albuterol 2.5 mg 12/25/20 10:20 Albuterol 2.5 Mg/3 Ml Nebu IH Q3HRT PRN Shortness Of Breath Amlodipine Besylate 10 mg 12/25/20 11:00 12/25/20 11:56 Amlodipine 5 Mg Tab PO 10 mg DAILY [facility] Administration Aspirin 325 mg 12/26/20 10:00 12/26/20 12:47 Aspirin Ec 325 Mg Tab PO 325 mg QDAY [facility] Administration Atorvastatin Calcium 40 mg 12/26/20 22:00 Atorvastatin 20 Mg Tab PO QHS [facility] Carvedilol 25 mg 12/25/20 11:00 12/26/20 12:46 Carvedilol 6.25 Mg Tab PO 25 mg BID [facility] Administration Clonidine HCl 0.1 mg 12/26/20 11:00 12/26/20 12:47 Clonidine 0.1 Mg Tab PO 0.1 mg Q12HR [facility] Administration Hydralazine HCl 50 mg 12/25/20 14:00 12/26/20 05:50 Hydralazine 25 Mg Tab PO 50 mg Q8HR [facility] Administration Hydralazine HCl 10 mg 12/26/20 05:01 12/26/20 05:50 Hydralazine 20 Mg/1 Ml Inj IV 10 mg Q6HR PRN Administration Hypertension Hydromorphone HCl 0.5 mg 12/26/20 11:41 Hydromorphone 1 Mg/1 Ml Inj IV Q3H PRN Pain , Severe (7-10) Morphine Sulfate 2 mg 12/25/20 10:20 Morphine 2 Mg/1 Ml Inj IV Q4H PRN Pain, Moderate (4-6) Morphine Sulfate 2 mg 12/26/20 11:41 Morphine 2 Mg/1 Ml Inj IV Q4H PRN Pain, Moderate (4-6) Morphine Sulfate 4 mg 12/26/20 11:41 Morphine 4 Mg/1 Ml Inj IV Q4H PRN Pain , Severe (7-10) Nitroglycerin 0.4 mg 12/25/20 10:24 Nitroglycerin 0.4 Mg Tab Subl SL Q5M PRN Chest Pain Sodium Chloride 10 ml 12/25/20 10:24 Sodium Chloride 0.9% 10 Ml Flush Syringe IV PRN PRN LINE FLUSH
--- NOTE | 2020-12-26 15:18 | Progress Note ---
Assessment and Plan Hypertensive emergency secondary to medical noncompliance * Patient has reported history of adrenal dysfunction contributing to resistant hypertension * Patient states he forgot medications for hypertension during recent trip to [place] preceding hypertensive emergency. * Echocardiogram is pending * Optimize antihypertensive regimen: Continue Coreg 25 mg twice daily, clonidine 0.1 mg twice daily, increase hydralazine to 100 mg 3 times daily. Continue to monitor on telemetry. NSTEMI suspect type II in setting of RENEE with history of CKD * Patient is chest pain-free. Twelve-lead ECG shows sinus rhythm 83 with no acute ischemic changes. Troponins are negative x3. AMI is ruled out * Patient reports negative cardiac stress test in 2019. * No BETSEY/ARB in setting of RENEE. Avoid nephrotoxic agents Epistaxis * Rhino Rocket in place. Management per primary team DVT prophylaxis * Management per primary team Currently stable cardiac status. Echocardiogram is pending. Will follow This patient was seen in conjunction with Dr. Gatica who agrees with this assessment and plan of care - Patient Problems (1) Epistaxis Current Visit: Yes Status: Acute (2) Atypical chest pain Current Visit: Yes Status: Acute (3) NSTEMI (non-ST elevated myocardial infarction) Current Visit: Yes Status: Acute (4) Hypertensive emergency Current Visit: Yes Status: Acute (5) Adrenal tumor Current Visit: Yes Status: Suspected (6) RENEE (acute kidney injury) Current Visit: Yes Status: Acute (7) CKD (chronic kidney disease) Current Visit: Yes Status: Suspected (8) HLD (hyperlipidemia) Current Visit: Yes Status: Chronic Qualifiers: Hyperlipidemia type: mixed hyperlipidemia Qualified Code(s): E78.2 - Mixed hyperlipidemia (9) Medical non-compliance Current Visit: Yes Status: Chronic Subjective Date of service: 12/26/20 Principal diagnosis: Acute kidney injury, hypertensive emergency Interval history: Patient resting comfortably in bed. No shortness of breath or chest pain overnight Telemetry reviewed: Sinus rhythm 73. No events Objective Last Vital Signs Temp 97.4 F L 12/26/20 12:02 Pulse 65 12/26/20 12:02 Resp 18 12/26/20 12:02 BP 176/120 12/26/20 12:02 Pulse Ox 97 12/26/20 12:02 - Physical Examination General: No Apparent Distress HEENT: Positive: EOMI, Normocephaly Neck: Positive: neck supple, trachea midline. Negative: JVD/HJR Cardiac: Positive: Reg Rate and Rhythm Lungs: Positive: Normal Exam, Normal Breath Sounds Neuro: Positive: Grossly Intact Abdomen: Positive: Soft. Negative: Tender Skin: Negative: Rash, Wound Musculoskeletal: No Pain Extremities: Present: upper extr. pulses, lower extr. pulses, +1 Edema (BLE) - Labs and Meds CBC 12/26/20 Range/Units 03:44 WBC 8.9 (4.5-11.0) K/mm3 RBC 5.44 H (3.65-5.03) M/mm3 Hgb 16.0 H (11.8-15.2) gm/dl Hct 48.0 H (35.5-45.6) % Plt Count 191 (140-440) K/mm3 Comprehensive Metabolic Panel 12/26/20 Range/Units 03:44 Sodium 139 (137-145) mmol/L Potassium 3.4 L (3.6-5.0) mmol/L Chloride 100.7 (98-107) mmol/L Carbon Dioxide 28 (22-30) mmol/L BUN 24 H (9-20) mg/dL Creatinine 1.8 H (0.8-1.3) mg/dL Glucose 109 H (75-100) mg/dL Calcium 8.6 (8.4-10.2) mg/dL - Imaging and Cardiology EKG: report reviewed, image reviewed Pharmacologic stress test: other (Patient reports negative stress test in 2019) Echo: pending - Telemetry EKG Rhythm: Sinus Rhythm - EKG Sinus rhythms and dysrhythmias: sinus rhythm Chamber hypertrophy or enlargement: left atrial enlargement, right atrial enlargment, left ventricular hypertro Repolarization changes or abnormalities: nonspecific abnormality, ST segment, and/or T wave
[2020-12-26] MEDS ORDERED: hydrALAZINE 25 MG TAB PO SCH (15:24)
[2020-12-26] MEDS ORDERED: SPIRONOLACTONE 25 MG TAB PO SCH (16:00)
[2020-12-26] MEDS: hydrALAZINE 100 MG TAB PO SCH ×2 (17:22→23:12)
[2020-12-27 05:27] LABS: Hematocrit 46.3 % (35.5-45.6); Hemoglobin 15.5 gm/dl (11.8-15.2); Mean Corpuscular HGB Conc 34 % (32-34); Mean Corpuscular Volume 88 fl (84-94); Platelet Count 187 K/mm3 (140-440); Red Blood Count 5.25 M/mm3 (3.65-5.03); Red Cell Distribution Width 14.8 % (13.2-15.2)
[2020-12-27] MEDS: hydrALAZINE 100 MG TAB PO SCH ×2 (06:34→16:00)
[2020-12-27] MEDS ORDERED: REGADENOSON 0.4 MG/5 ML INJ IV ONE (07:20)
--- NOTE | 2020-12-27 09:14 | Electrocardiograph Report ---
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
--- NOTE | 2020-12-27 10:27 | Discharge Summary ---
Providers - Providers Date of Admission: 12/26/20 07:58 Date of discharge: 12/27/20 Attending physician: EV MCGEE 12/25/20 09:46 Consult to Physician [CONS] Routine Comment: Consulting Provider: JOHN HURT Physician Instructions: Reason For Exam: Chest pain,elevated troponin Consult to Physician [CONS] Routine Comment: Consulting Provider: GRIS BURGOS Physician Instructions: Reason For Exam: Elevated Creatinine Primary care physician: NETWORK AND THREAT SUPPORT SPECIALIST Hospitalization Reason for admission: Epistaxis, accelerated hypertension and chest pain Condition: Stable Hospital course: Pt is a 45-year-old male with significant past medical history of hypertension who who presented with complaints of epistaxis 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 He is currently in [place] visiting a friend but typically receives care in [place]. He does not have a list of his home meds. Pt reports having a pharmacologic stress test done approximately 2 years ago, which he states was normal. Patient had a nasal plug applied to the right nostril done in the emergency room which abated the epistaxis. Blood pressure on admission was noted to be 236/149. Patient was initially started on Cardene drip and blood pressure improved. Patient was transitioned to medications of hydralazine, clonidine, Coreg and amlodipine. The patient's blood pressure stabilized. Cardiology saw the patient in consultation and recommended stress test for the chest pain. Cardiology also felt patient had NSTEMI suspect type II in setting of RENEE with history of CKD. If stress test is found to be negative patient will be discharged home and is to follow-up with PCP. I discussed with Dr. Carcamo in the emergency room who will remove the Rhino Rocket for the epistaxis. Dedicated discharge time 35 minutes Disposition: DC-01 TO HOME OR SELFCARE Final Discharge Diagnosis (Prints w/discharge instructions): Accelerated hypertension, hypertensive emergency secondary to medical noncompliance, NSTEMI suspect type II in setting of RENEE with history of CKD, RENEE with history of CKD, epistaxis Core Measure Documentation - Palliative Care Palliative Care/ Comfort Measures: Not Applicable - Core Measures Any of the following diagnoses?: acute DE - Acute DE Discharge Requirements Aspirin at discharge: Yes BETSEY/ARB for LVSD if EF <40%: No Reason for no BETSEY/ARB: Renal impairment Beta navjot at discharge: Yes Statin for LDL = or >100 mg/dl on DC: Yes Exam - Constitutional Vitals: Temp Pulse Resp BP Pulse Ox 97.9 F 67 19 165/93 94 12/27/20 07:55 12/27/20 07:55 12/27/20 07:55 12/27/20 07:55 12/27/20 07:55 General appearance: Present: no acute distress, well-nourished - EENT Eyes: Present: PERRL ENT: hearing intact, clear oral mucosa - Neck Neck: Present: supple, normal ROM - Respiratory Respiratory effort: normal Respiratory: bilateral: CTA - Cardiovascular Heart Sounds: Present: S1 & S2. Absent: rub, click - Extremities Extremities: pulses symmetrical, No edema Peripheral Pulses: within normal limits - Abdominal General gastrointestinal: Present: soft, non-tender, non-distended, normal bowel sounds Male genitourinary: Present: normal - Integumentary Integumentary: Present: clear, warm, dry - Musculoskeletal Musculoskeletal: gait normal, strength equal bilaterally - Psychiatric Psychiatric: appropriate mood/affect, intact judgment & insight - Neurologic Neurologic: CNII-XII intact, moves all extremities Plan Activity: advance as tolerated Weight Bearing Status: Weight Bear as Tolerated Diet: low fat, low cholesterol, low salt Additional Instructions: Dr. Carcamo in the emergency department to remove Rhino Rocket Prescriptions: amLODIPine 10 mg PO DAILY #30 tablet hydrALAZINE [Apresoline TAB] 100 mg PO Q8HR #90 tab cloNIDine [Catapres] 0.1 mg PO Q12HR #60 tablet carvediloL [Coreg] 25 mg PO BID #60 tablet Aspirin EC [Ecotrin] 325 mg PO QDAY #30 tablet AtorvaSTATin [Lipitor] 40 mg PO QHS #30 tablet
--- NOTE | 2020-12-27 11:19 | Progress Note ---
Assessment and Plan - Patient Problems (1) Hypertensive emergency Current Visit: Yes Status: Acute Plan to address problem: Blood pressure has improved on oral medications. Continue spironolactone. Follow-up blood pressure on current medications. Patient can be discharged home on the current medications and then on getting back to [place], advised to schedule an appointment as soon as possible (2) Fdwho-pr-oojyxou kidney injury Current Visit: Yes Status: Acute Plan to address problem: I suspect baseline chronic kidney disease stage III which may be secondary to hypertensive nephrosclerosis but given the proteinuria, concerned about chronic glomerulonephritis. Awaiting records from [facility] (3) Anterior epistaxis Current Visit: Yes Status: Acute Plan to address problem: Bleeding has resolved (4) Medical non-compliance Current Visit: Yes Status: Chronic Plan to address problem: Counseled patient on importance of taking medications regularly, keeping to diet and exercising regularly. (5) CKD (chronic kidney disease) Current Visit: Yes Status: Suspected Plan to address problem: Chronic kidney disease presumably secondary to hypertensive nephrosclerosis. The proteinuria is quite concerning for chronic glomerulonephritis Subjective Date of service: 12/27/20 Principal diagnosis: Acute kidney injury, hypertensive emergency Interval history: Patient seen lying in bed. Feels better this morning. No nausea vomiting. No shortness of breath. No nosebleeds. Still no records from [facility] Objective - Exam Narrative Exam: Heavily built middle-aged -[place] male lying in bed in no acute distress HEENT: NCAT, Neck: Supple, no venous distention CVS: S1S2 RRR with no murmur, rub or gallop Chest: Clear to auscultation Abdomen: Protuberant, soft, nontender, no organomegaly, bowel sounds are present Extremities: No edema Genitourinary deferred Skin warm and dry with no rash. Neuro: Awake, alert no focal deficits - Vital Signs Vital signs: Vital Signs - 12hr 12/27/20 12/27/20 12/27/20 03:10 07:55 09:43 Temperature 98.3 F 97.9 F Pulse Rate 65 67 Respiratory 16 19 Rate Blood Pressure 143/85 165/93 167/100 O2 Sat by Pulse 90 94 Oximetry 12/27/20 12/27/20 12/27/20 10:06 10:07 10:09 Temperature Pulse Rate Respiratory Rate Blood Pressure 179/108 170/102 169/101 O2 Sat by Pulse Oximetry 07/20/21 07/20/21 10:10 10:11 Temperature Pulse Rate Respiratory Rate Blood Pressure 164/105 162/100 O2 Sat by Pulse Oximetry - Lab 12/27/20 04:44 12/27/20 04:44 Most recent lab results Calcium 9.0 mg/dL (8.4-10.2) 12/27/20 04:44 Magnesium 2.20 mg/dL (1.7-2.3) 12/25/20 10:51 Medications & Allergies - Medications Allergies/Adverse Reactions: Allergies No Known Allergies Allergy (Verified 12/25/20 06:04) Home Medications: Home Medications Medication Instructions Recorded Confirmed Last Taken Type Aspirin EC [Ecotrin] 325 mg PO QDAY #30 tablet 12/27/20 Unknown Rx AtorvaSTATin [Lipitor] 40 mg PO QHS #30 tablet 12/27/20 Unknown Rx amLODIPine 10 mg PO DAILY #30 tablet 12/27/20 Unknown Rx carvediloL [Coreg] 25 mg PO BID #60 tablet 12/27/20 Unknown Rx cloNIDine [Catapres] 0.1 mg PO Q12HR #60 tablet 12/27/20 Unknown Rx hydrALAZINE [Apresoline TAB] 100 mg PO Q8HR #90 tab 12/27/20 Unknown Rx Active Medications: Generic Name Dose Route Start Last Admin Trade Name Freq PRN Reason Stop Dose Admin Acetaminophen 650 mg 12/26/20 11:41 Acetaminophen 325 Mg Tab PO Q4H PRN Pain MILD(1-3)/Fever >100.5/WAN Hydrocodone Bitart/Acetaminophen 2 each 12/26/20 08:00 12/26/20 08:20 Hydrocodone/Acetaminophen 5-325 Mg Tab PO 2 each Q6H PRN Administration Pain, Moderate (4-6) Albuterol 2.5 mg 12/25/20 10:20 Albuterol 2.5 Mg/3 Ml Nebu IH Q3HRT PRN Shortness Of Breath Amlodipine Besylate 10 mg 12/25/20 11:00 12/26/20 12:53 Amlodipine 5 Mg Tab PO 10 mg DAILY AZUL Administration Aspirin 325 mg 12/26/20 10:00 12/26/20 12:47 Aspirin Ec 325 Mg Tab PO 325 mg QDAY AZUL Administration Atorvastatin Calcium 40 mg 12/26/20 22:00 12/26/20 23:11 Atorvastatin 20 Mg Tab PO 40 mg QHS AZUL Administration Carvedilol 25 mg 12/25/20 11:00 12/26/20 23:10 Carvedilol 6.25 Mg Tab PO 25 mg BID AZUL Administration Clonidine HCl 0.1 mg 12/26/20 11:00 12/26/20 23:11 Clonidine 0.1 Mg Tab PO 0.1 mg Q12HR AZUL Administration Hydralazine HCl 10 mg 12/26/20 05:01 12/26/20 05:50 Hydralazine 20 Mg/1 Ml Inj IV 10 mg Q6HR PRN Administration Hypertension Hydralazine HCl 100 mg 12/26/20 16:00 12/27/20 06:34 Hydralazine 100 Mg Tab PO 100 mg Q8HR AZUL Administration Hydromorphone HCl 0.5 mg 12/26/20 11:41 Hydromorphone 1 Mg/1 Ml Inj IV Q3H PRN Pain , Severe (7-10) Morphine Sulfate 2 mg 12/25/20 10:20 Morphine 2 Mg/1 Ml Inj IV Q4H PRN Pain, Moderate (4-6) Morphine Sulfate 2 mg 12/26/20 11:41 Morphine 2 Mg/1 Ml Inj IV Q4H PRN Pain, Moderate (4-6) Morphine Sulfate 4 mg 12/26/20 11:41 Morphine 4 Mg/1 Ml Inj IV Q4H PRN Pain , Severe (7-10) Nitroglycerin 0.4 mg 12/25/20 10:24 Nitroglycerin 0.4 Mg Tab Subl SL Q5M PRN Chest Pain Oxymetazoline HCl 2 spray 12/27/20 12:00 Oxymetazoline 0.05% Nasal Early NS Q12H PRN Nasal Congestion Sodium Chloride 10 ml 12/25/20 10:24 Sodium Chloride 0.9% 10 Ml Flush Syringe IV PRN PRN LINE FLUSH
--- NOTE | 2020-12-27 11:50 | Nuclear Medicine Report ---
APPROVED REPORT Exam: Nuclear Stress Test Indication: Chest pain Patient Location: [address] [place] [address] Room #: 465 Ht: 6 ft 2 in Wt: 265 lbs BSA: 2.45 m2 HR: 68 bpmBP: 167/100 mmHgBMI: 34.02 Rhythm: sINUS RHYTHM WITH FIRST DEGREE AV BLOCK Stress Test Details Stress Test: Pharmacologic stress testing performed using 0.4 mg of regadenoson per 5 mL given IV over 10 seconds. HR Resting HR: 68 bpm Max HR Achieved: 87 bpm Max Heart Rate (APMHR): 174 bpm Target HR (85% APMHR): 147 bpm % of APMHR: 50 Recovery HR: 81 bpm BP Resting BP: 167/100 mmHg Max BP: 179/108 mmHg Recovery BP: 162/100 mmHg ECG Resting ECG: SINUS RHYTHM WITH FIRST DEGREE AV BLOCK Arrhythmia: None Clinical Reason for Termination: Completed protocol Stress Symptoms: DIZZINESS; HEADACHE NM EXAM: Myocardial Perfusion REST/STRESS Imaging Protocol: Rest Tc-99m/Stress Tc-99m 1 day Resting Data Rest SPECT myocardial perfusion imaging was performed in supine position 30 minutes following the intravenous injection of 10 mCi of Tc-99m Myoview. Time of rest injection: 0700 Pharmacologic Stress Pharmacologic stress test was performed by injecting Regadenoson 0.4 mg IV push followed by the intravenous injection of 28 mCi of Tc-99m Myoview. Time of stress injection: 0830 Gated Stress SPECT was performed 45 minutes after stress injection. The images were gated to evaluate regional wall motion and calculate left ventricular ejection fraction. Study Data TID = 1.07. Perfusion Nuclear Conclusion ECG Findings: negative for ischemia Clinical Findings: negative for ischemia Nuclear Findings: negative for ischemia Exercise Capacity: not assessed Left Ventricular Function: abnormal Normal study. No scintigraphic evidence for myocardial ischemia or scar. negative lexiscan ekg ef 35%, suggestive echo for lv function
--- NOTE | 2020-12-27 11:51 | Progress Note ---
Assessment and Plan 45-year-old male hypertensive urgency with chest pain abnormal troponin suggestive of non-STEMI type II with acute on chronic renal sufficiency stress test revealed no significant ischemia but decreased LV function. Echocardiogram shows EF of 45 to 50% moderate severe left ventricle hypertrophy. Patient will not be on BETSEY or ARB secondary renal sufficiency. Continue hydralazine Imdur Coreg and amlodipine for blood pressure control and aspirin statin. Patient is currently compensated. May be discharged from a cardiovascular point of view patient will follow with physician in [place] - Patient Problems (1) Acute diastolic heart failure Current Visit: Yes Status: Acute (2) [id number] kidney injury Current Visit: Yes Status: Acute (3) Atypical chest pain Current Visit: Yes Status: Acute (4) Hypertensive emergency Current Visit: Yes Status: Acute (5) NSTEMI (non-ST elevated myocardial infarction) Current Visit: Yes Status: Acute (6) HLD (hyperlipidemia) Current Visit: Yes Status: Chronic Qualifiers: Hyperlipidemia type: mixed hyperlipidemia Qualified Code(s): E78.2 - Mixed hyperlipidemia (7) Medical non-compliance Current Visit: Yes Status: Chronic Subjective Date of service: 12/27/20 Principal diagnosis: Acute kidney injury, hypertensive emergency Interval history: no chest pain Objective Vital Signs Temp Pulse Resp BP Pulse Ox 12/27/20 10:11 162/100 12/27/20 10:10 164/105 12/27/20 10:09 169/101 12/27/20 10:07 170/102 12/27/20 10:06 179/108 12/27/20 09:43 167/100 12/27/20 07:55 97.9 F 67 19 165/93 94 12/27/20 03:10 98.3 F 65 16 143/85 90 12/26/20 23:11 141/84 12/26/20 23:10 141/84 12/26/20 22:54 97.3 F L 67 19 149/91 92 12/26/20 19:18 97.5 F L 65 16 141/84 92 12/26/20 16:00 67 12/26/20 15:30 97.4 F L 67 18 157/96 96 12/26/20 12:02 97.4 F L 65 18 176/120 97 - Physical Examination General: No Apparent Distress HEENT: Positive: EOMI, Normocephaly Neck: Positive: neck supple, trachea midline. Negative: JVD/HJR Cardiac: Positive: Reg Rate and Rhythm Lungs: Positive: clear to auscultation Neuro: Positive: Grossly Intact Abdomen: Positive: Soft. Negative: Tender Skin: Negative: Rash, Wound Musculoskeletal: No Pain Extremities: Present: upper extr. pulses, lower extr. pulses, +1 Edema (BLE) - Labs and Meds CBC 12/27/20 Range/Units 04:44 WBC 9.1 (4.5-11.0) K/mm3 RBC 5.25 H (3.65-5.03) M/mm3 Hgb 15.5 H (11.8-15.2) gm/dl Hct 46.3 H (35.5-45.6) % Plt Count 187 (140-440) K/mm3 Comprehensive Metabolic Panel 12/27/20 Range/Units 04:44 Sodium 137 (137-145) mmol/L Potassium 3.3 L (3.6-5.0) mmol/L Chloride 99.3 (98-107) mmol/L Carbon Dioxide 26 (22-30) mmol/L BUN 31 H (9-20) mg/dL Creatinine 1.9 H (0.8-1.3) mg/dL Glucose 104 H (75-100) mg/dL Calcium 9.0 (8.4-10.2) mg/dL - Imaging and Cardiology EKG: report reviewed, image reviewed Pharmacologic stress test: report reviewed (no signficant ischemia noted ef 35%) Echo: report reviewed (ef 45-50% moderate to severe lvh mild mr) - Telemetry EKG Rhythm: Sinus Rhythm - EKG Sinus rhythms and dysrhythmias: sinus rhythm Chamber hypertrophy or enlargement: left atrial enlargement, right atrial enlargment, left ventricular hypertro Repolarization changes or abnormalities: nonspecific abnormality, ST segment, and/or T wave
[2020-12-27] MEDS ORDERED: OXYMETAZOLINE 0.05% NASAL SPRAY NS PRN (12:00)
[2020-12-27] MEDS: ASPIRIN EC 325 MG TAB PO SCH (12:07)
[2020-12-27] MEDS: amLODIPine 5 MG TAB PO SCH (12:08)
[2020-12-27] MEDS: cloNIDine 0.1 MG TAB PO SCH (12:08)
[2020-12-27] MEDS: carvediloL 6.25 MG TAB PO SCH (12:12)
[2020-12-27] MEDS ORDERED: OXYMETAZOLINE 0.05% NASAL SPRAY NS SCH (12:30)
--- NOTE | 2020-12-27 14:39 | Event Note ---
Date: 12/27/20 Initially went to the patient's room at 12:01 PM to remove a right sided nasal packing via Rhino Rocket. Patient was not available at that time thus I returned to 1:30 PM to remove the patient's Rhino Rocket. Rhino Rocket was deflated and it was easily removed. Patient received 2 Afrin sprays of each nare. There was no bleeding after removal of the Rhino Rocket. I did observe the patient for 20 minutes after removal. There was also minimal blood on the Rhino Rocket upon removal.
[2020-12-27 15:56] VITALS: BP 134/83
== END 2020-12-27 16:15 | disposition home or self-care (01) | DRG 280 ==
LOC: SUATTDRO 05:50 → ED 05:50 → 4A 12-26 07:58
PROVIDERS: ADMIT Internal Medicine; ATTEND Hospitalist
DX: I16.1 Hypertensive emergency (principal); I21.A1 Myocardial infarction type 2; I50.31 Acute diastolic (congestive) heart failure; N17.9 Acute kidney failure, unspecified; I13.0 Hypertensive heart and chronic kidney disease with heart failure and stage 1 through stage 4 chronic kidney disease, or unspecified chronic kidney disease; N18.30 Chronic kidney disease, stage 3 unspecified; I25.10 Atherosclerotic heart disease of native coronary artery without angina pectoris; E78.2 Mixed hyperlipidemia; E66.9 Obesity, unspecified; E87.6 Hypokalemia; R04.0 Epistaxis; I25.2 Old myocardial infarction; Z68.33 Body mass index [BMI] 33.0-33.9, adult; Z82.49 Family history of ischemic heart disease and other diseases of the circulatory system; Z91.19 Patient's noncompliance with other medical treatment and regimen
CPT/HCPCS: 36415; 71045; 71275; 78452; 80048; 80053; 80061; 81001; 83735; 83880; 84484; 85025; 85027; 85379; 85610; 85730; 93005; 93017; 93306; 93970; G0378; A9270-GY; A9502; J0360; J2785; Q9967